=== PATIENT | male | born 1960 | race Caucasian/White ===

== ENCOUNTER 2021-10-12 08:04 | Inpatient (IN) ==
[2021-10-12] MEDS ORDERED: KETOROLAC 30 MG/1 ML VIAL IV STA (08:33)
[2021-10-12] MEDS ORDERED: ONDANSETRON 4 MG/2 ML VIAL IV STA (08:33)
[2021-10-12 08:39] LABS: Basophils % 0.2 % (0.0-0.8); Eosinophils # 0.1 10*3/uL (0.0-0.87); Eosinophils % 0.9 % (0.00-10.9); Hematocrit 39.3 VOL% (42.0-52.0); Hemoglobin 13.1 GM/DL (14.0-18.0); Immature Granulocytes % 0.3 %; Immature Granulocytes Absolute 0.05 #; Lymphocytes # 1.9 10*3/uL (1.4-4.0); Mean Corpuscular HGB Conc 33.3 GM/DL (32-36); Mean Corpuscular Volume 95.2 FL (87-102); Mean Platelet Volume 9.8 FL (9.6-12.0); Monocytes # 1.1 10*3/uL (0.11-0.8); Monocytes % 7.5 % (1.7-12.7); Neutrophils % 78.1 % (38.7-73.9); Platelet Count 254 T/CUMM (130-400); Red Blood Count 4.13 MC/CUMM (3.8-5.5); Red Cell Distribution Width 12.4 % (9.3-17.3); White Blood Count 14.4 T/CUMM (4-12)
[2021-10-12 09:02] LABS: Albumin 3.5 G/DL (3.4-5.0); Bilirubin,Total 0.5 MG/DL (0.20-1.00); Calcium 9.5 MG/DL (8.5-10.1); Osmolality,Calculated 275.7 MOS/KG (273-304); Potassium 3.8 MMOL/L (3.5-5.1); Total Protein 7.6 G/DL (6.4-8.2)
[2021-10-12 09:27] LABS: Amorphous Crystals,Urine Few /HPF (Few); Mucus,Urine Occasional /LPF (Occasional); RBC,Urine 11 /HPF (0-4)
[2021-10-12 09:28] LABS: Bilirubin,Urine Negative (Negative); Blood, Urine Small mg/dL (Negative); Glucose,Urine (UA) Negative (Negative); Ketones,Urine Negative (Negative); Nitrite,Urine Negative (Negative); Protein,Urine Negative (Negative); Urine Appearance Clear (Clear); Urine Color Dark yellow (Yellow)
[2021-10-12] MEDS ORDERED: HYDROmorphone 1 MG/1 ML SYRINGE IV STA (10:09)
[2021-10-12] MEDS ORDERED: PIPERACILLIN/TAZOBACTAM 3,375 MG in SODIUM CHLORIDE 0.9% 100 ML IV STA (10:20)
[2021-10-12] MEDS ORDERED: SODIUM CHLORIDE 0.9% 1,000 ML IV STA (10:22)
[2021-10-12] MEDS ORDERED: ONDANSETRON 4 MG/2 ML VIAL IV PRN (11:07)
[2021-10-12] MEDS ORDERED: oxyCODONE/ACETAMINOPHEN 5-325 MG TABLET PO PRN (11:07)
[2021-10-12] MEDS ORDERED: ACETAMINOPHEN 325 MG TABLET PO PRN (11:07)
[2021-10-12] MEDS: PIPERACILLIN/TAZOBACTAM 3,375 MG in SODIUM CHLORIDE 0.9% 100 ML IV SCH ×2 (15:09→23:15)
[2021-10-12] MEDS: HYDROmorphone 2 MG TABLET PO PRN (15:09)
[2021-10-12] MEDS: GABAPENTIN 600 MG TABLET PO SCH ×2 (16:50→20:14)
[2021-10-12] MEDS: HYDROmorphone 1 MG/1 ML SYRINGE IV PRN ×3 (16:50→23:10)
[2021-10-12] MEDS: DEXTROSE 5% LACTATED RINGERS 1,000 ML IV SCH ×2 (20:08→20:14)
[2021-10-12] MEDS: TOPIRAMATE 100 MG TABLET PO SCH (20:13)
[2021-10-12] MEDS: MELATONIN 3 MG TABLET PO SCH (20:13)
[2021-10-12] MEDS: NORTRIPTYLINE 25 MG CAPSULE PO SCH (20:14)
[2021-10-13] MEDS: HYDROmorphone 1 MG/1 ML SYRINGE IV PRN ×6 (02:38→21:26)
[2021-10-13] MEDS: DEXTROSE 5% LACTATED RINGERS 1,000 ML IV SCH ×3 (04:51→22:51)
[2021-10-13] MEDS: ENOXAPARIN 40 MG/0.4 ML SYRINGE SUBCUT SCH (05:38)
[2021-10-13] MEDS: PANTOPRAZOLE 40 MG TABLET PO SCH (05:40)
[2021-10-13 06:03] LABS: Basophils % 0.3 % (0.0-0.8); Eosinophils # 0.1 10*3/uL (0.0-0.87); Eosinophils % 1.2 % (0.00-10.9); Hematocrit 31.8 VOL% (42.0-52.0); Hemoglobin 10.8 GM/DL (14.0-18.0); Immature Granulocytes % 0.3 %; Immature Granulocytes Absolute 0.04 #; Lymphocytes # 1.7 10*3/uL (1.4-4.0); Lymphocytes % 13.8 % (21.2-54.2); Mean Corpuscular Volume 94.6 FL (87-102); Mean Platelet Volume 10.3 FL (9.6-12.0); Monocytes # 1.2 10*3/uL (0.11-0.8); Monocytes % 9.8 % (1.7-12.7); Neutrophils % 74.6 % (38.7-73.9); Platelet Count 221 T/CUMM (130-400); Red Blood Count 3.36 MC/CUMM (3.8-5.5); Red Cell Distribution Width 12.3 % (9.3-17.3)
[2021-10-13 06:32] LABS: Osmolality,Calculated 275.7 MOS/KG (273-304); Potassium 3.6 MMOL/L (3.5-5.1)
[2021-10-13] MEDS: PIPERACILLIN/TAZOBACTAM 3,375 MG in SODIUM CHLORIDE 0.9% 100 ML IV SCH ×3 (06:41→22:49)
[2021-10-13] MEDS: GABAPENTIN 600 MG TABLET PO SCH ×3 (08:40→21:25)
[2021-10-13] MEDS: TOPIRAMATE 100 MG TABLET PO SCH ×2 (08:40→21:25)
[2021-10-13] MEDS ORDERED: PANTOPRAZOLE 40 MG TABLET PO SCH (09:00)
[2021-10-13] MEDS: NICOTINE 14 MG/24 HR PATCH TRANSDERM SCH (12:32)
[2021-10-13] MEDS: HYDROmorphone 2 MG TABLET PO PRN (15:31)
[2021-10-13] MEDS: MELATONIN 3 MG TABLET PO SCH (21:25)
[2021-10-13] MEDS: NORTRIPTYLINE 25 MG CAPSULE PO SCH (21:25)
[2021-10-14] MEDS: HYDROmorphone 1 MG/1 ML SYRINGE IV PRN ×7 (00:57→23:41)
[2021-10-14] MEDS: DEXTROSE 5% LACTATED RINGERS 1,000 ML IV SCH ×3 (03:40→20:33)
[2021-10-14] MEDS: PANTOPRAZOLE 40 MG TABLET PO SCH (06:03)
[2021-10-14] MEDS: ENOXAPARIN 40 MG/0.4 ML SYRINGE SUBCUT SCH (06:04)
[2021-10-14] MEDS: PIPERACILLIN/TAZOBACTAM 3,375 MG in SODIUM CHLORIDE 0.9% 100 ML IV SCH ×3 (06:04→23:19)
[2021-10-14] MEDS: GABAPENTIN 600 MG TABLET PO SCH ×3 (09:17→20:37)
[2021-10-14] MEDS: NICOTINE 14 MG/24 HR PATCH TRANSDERM SCH (09:18)
[2021-10-14] MEDS: TOPIRAMATE 100 MG TABLET PO SCH ×2 (09:18→20:37)
[2021-10-14] MEDS: NORTRIPTYLINE 25 MG CAPSULE PO SCH (20:36)
[2021-10-14] MEDS: MELATONIN 3 MG TABLET PO SCH (20:37)
[2021-10-15 05:18] LABS: Basophils % 0.2 % (0.0-0.8); Eosinophils # 0.3 10*3/uL (0.0-0.87); Eosinophils % 5.4 % (0.00-10.9); Hematocrit 33.3 VOL% (42.0-52.0); Hemoglobin 11.1 GM/DL (14.0-18.0); Immature Granulocytes % 0.5 %; Immature Granulocytes Absolute 0.03 #; Lymphocytes # 2.1 10*3/uL (1.4-4.0); Lymphocytes % 36.6 % (21.2-54.2); Mean Corpuscular HGB Conc 33.3 GM/DL (32-36); Mean Platelet Volume 9.9 FL (9.6-12.0); Monocytes # 0.5 10*3/uL (0.11-0.8); Monocytes % 8.7 % (1.7-12.7); Neutrophils % 48.6 % (38.7-73.9); Platelet Count 251 T/CUMM (130-400); Red Blood Count 3.47 MC/CUMM (3.8-5.5); Red Cell Distribution Width 12.2 % (9.3-17.3); White Blood Count 5.8 T/CUMM (4-12)
[2021-10-15] MEDS: HYDROmorphone 1 MG/1 ML SYRINGE IV PRN ×6 (05:30→23:56)
[2021-10-15] MEDS: PANTOPRAZOLE 40 MG TABLET PO SCH (05:33)
[2021-10-15] MEDS: ENOXAPARIN 40 MG/0.4 ML SYRINGE SUBCUT SCH (05:33)
[2021-10-15] MEDS: DEXTROSE 5% LACTATED RINGERS 1,000 ML IV SCH ×2 (06:00→12:26)
[2021-10-15] MEDS: PIPERACILLIN/TAZOBACTAM 3,375 MG in SODIUM CHLORIDE 0.9% 100 ML IV SCH ×3 (07:23→23:00)
[2021-10-15] MEDS: GABAPENTIN 600 MG TABLET PO SCH ×3 (09:12→20:30)
[2021-10-15] MEDS: TOPIRAMATE 100 MG TABLET PO SCH ×2 (09:12→20:30)
[2021-10-15] MEDS: NICOTINE 14 MG/24 HR PATCH TRANSDERM SCH (09:13)
[2021-10-15] MEDS: NORTRIPTYLINE 25 MG CAPSULE PO SCH (20:29)
[2021-10-15] MEDS: MELATONIN 3 MG TABLET PO SCH (20:30)
[2021-10-16] MEDS: DEXTROSE 5% LACTATED RINGERS 1,000 ML IV SCH ×2 (05:20)
[2021-10-16] MEDS: HYDROmorphone 1 MG/1 ML SYRINGE IV PRN ×2 (05:24→11:42)
[2021-10-16] MEDS: ENOXAPARIN 40 MG/0.4 ML SYRINGE SUBCUT SCH (05:25)
[2021-10-16] MEDS: PANTOPRAZOLE 40 MG TABLET PO SCH (05:30)
[2021-10-16] MEDS: GABAPENTIN 600 MG TABLET PO SCH (09:19)
[2021-10-16] MEDS: HYDROmorphone 2 MG TABLET PO PRN (09:20)
[2021-10-16] MEDS: TOPIRAMATE 100 MG TABLET PO SCH (09:20)
[2021-10-16] MEDS: NICOTINE 14 MG/24 HR PATCH TRANSDERM SCH (09:20)
[2021-10-16] MEDS: PIPERACILLIN/TAZOBACTAM 3,375 MG in SODIUM CHLORIDE 0.9% 100 ML IV SCH (09:24)
[2021-10-16 12:46] VITALS: BP 126/90
== END 2021-10-16 13:11 | disposition home or self-care (01) | DRG 373 ==
LOC: N.ED 08:04 → N.EDINP 11:07 → N.5E 14:40
PROVIDERS: ADMIT Surgery; ATTEND Surgery

== ENCOUNTER 2022-03-28 10:55 | Inpatient (IN) ==
[2022-03-28] MEDS ORDERED: ONDANSETRON 4 MG/2 ML VIAL IV STA (11:25)
[2022-03-28] MEDS ORDERED: MORPHINE 2 MG/1 ML SYRINGE IV STA (11:25)
[2022-03-28 11:36] LABS: Basophils % 0.1 % (0.0-0.8); Hematocrit 40.6 VOL% (42.0-52.0); Hemoglobin 13.4 GM/DL (14.0-18.0); Immature Granulocytes % 0.6 %; Immature Granulocytes Absolute 0.13 #; Lymphocytes # 1.7 10*3/uL (1.4-4.0); Lymphocytes % 8.3 % (21.2-54.2); Mean Corpuscular Volume 96.7 FL (87-102); Mean Platelet Volume 10.2 FL (9.6-12.0); Monocytes # 0.9 10*3/uL (0.11-0.8); Monocytes % 4.6 % (1.7-12.7); Neutrophils % 86.4 % (38.7-73.9); Platelet Count 211 T/CUMM (130-400); White Blood Count 20.4 T/CUMM (4-12)
[2022-03-28] MEDS ORDERED: SODIUM CHLORIDE 0.9% 1,000 ML IV STA (11:42)
[2022-03-28] MEDS ORDERED: cefTRIAXone 1,000 MG in SODIUM CHLORIDE 0.9% 100 ML IV STA (11:45)
[2022-03-28] MEDS ORDERED: cefTRIAXone 1,000 MG VIAL ONE (11:46)
[2022-03-28 11:47] LABS: Albumin 3.8 G/DL (3.4-5.0); Bilirubin,Total 0.6 MG/DL (0.20-1.00); Osmolality,Calculated 281.4 MOS/KG (273-304); Potassium 3.8 MMOL/L (3.5-5.1); Total Protein 6.8 G/DL (6.4-8.2)
[2022-03-28 11:59] LABS: Anisocytosis 1+; Band Neutrophils 14 % (0-10); Lymphocytes 13 % (20-55); Platelet Estimate Normal; Total Cells Counted 100
[2022-03-28 12:00] LABS: Macrocytosis Slight
[2022-03-28] MEDS ORDERED: ONDANSETRON 4 MG/2 ML VIAL IV PRN (13:41)
[2022-03-28] MEDS ORDERED: ACETAMINOPHEN 325 MG TABLET PO PRN (13:41)
[2022-03-28] MEDS ORDERED: MORPHINE 2 MG/1 ML SYRINGE IV PRN (13:41)
[2022-03-28] MEDS: PIPERACILLIN/TAZOBACTAM 3,375 MG in SODIUM CHLORIDE 0.9% 100 ML IV SCH ×2 (13:45→20:48)
[2022-03-28] MEDS ORDERED: HYDROmorphone 1 MG/1 ML SYRINGE IV PRN (14:03)
[2022-03-28] MEDS: LACTATED RINGERS 1,000 ML IV SCH (14:28)
[2022-03-28 14:55] LABS: Thyroid Stimulating Hormone 0.6 uIU/ml (0.358-3.74)
[2022-03-28] MEDS: HYDROmorphone 1 MG/1 ML SYRINGE IV PRN ×2 (16:02→20:48)
[2022-03-28] MEDS ORDERED: ENOXAPARIN 40 MG/0.4 ML SYRINGE SUBCUT SCH (21:00)
[2022-03-29] MEDS: HYDROmorphone 1 MG/1 ML SYRINGE IV PRN ×6 (05:25→21:34)
[2022-03-29] MEDS: PIPERACILLIN/TAZOBACTAM 3,375 MG in SODIUM CHLORIDE 0.9% 100 ML IV SCH ×3 (05:28→21:29)
[2022-03-29 06:03] LABS: Basophils % 0.2 % (0.0-0.8); Eosinophils # 0.1 10*3/uL (0.0-0.87); Eosinophils % 0.4 % (0.00-10.9); Hematocrit 35.8 VOL% (42.0-52.0); Hemoglobin 11.6 GM/DL (14.0-18.0); Immature Granulocytes % 0.5 %; Immature Granulocytes Absolute 0.06 #; Lymphocytes # 1.4 10*3/uL (1.4-4.0); Lymphocytes % 10.7 % (21.2-54.2); Mean Corpuscular HGB Conc 32.4 GM/DL (32-36); Mean Corpuscular Volume 98.6 FL (87-102); Mean Platelet Volume 10.9 FL (9.6-12.0); Monocytes # 0.7 10*3/uL (0.11-0.8); Monocytes % 5.1 % (1.7-12.7); Neutrophils % 83.1 % (38.7-73.9); Platelet Count 162 T/CUMM (130-400); Red Blood Count 3.63 MC/CUMM (3.8-5.5); Red Cell Distribution Width 12.8 % (9.3-17.3); White Blood Count 13.2 T/CUMM (4-12)
[2022-03-29 06:26] LABS: Calcium 8.8 MG/DL (8.5-10.1); Osmolality,Calculated 281.4 MOS/KG (273-304); Potassium 3.6 MMOL/L (3.5-5.1)
[2022-03-29] MEDS ORDERED: PANTOPRAZOLE 40 MG TABLET PO SCH (09:00)
[2022-03-29] MEDS ORDERED: PANTOPRAZOLE 40 MG VIAL IV SCH (09:00)
[2022-03-29] MEDS: LACTATED RINGERS 1,000 ML IV SCH ×2 (09:30→13:38)
[2022-03-29 19:41] LABS: Bilirubin,Urine Negative (Negative); Blood, Urine Moderate mg/dL (Negative); Glucose,Urine (UA) Negative (Negative); Ketones,Urine Trace mg/dL (Negative); Mucus,Urine Occasional /LPF (Occasional); Nitrite,Urine Negative (Negative); Protein,Urine 30 mg/dL (Negative); RBC,Urine 11 /HPF (0-4); Urine Appearance Clear (Clear); Urine Color Yellow (Yellow)
[2022-03-29] MEDS: PANTOPRAZOLE 40 MG VIAL IV SCH (21:29)
[2022-03-30] MEDS: HYDROmorphone 1 MG/1 ML SYRINGE IV PRN ×6 (01:34→21:15)
[2022-03-30] MEDS: LACTATED RINGERS 1,000 ML IV SCH ×3 (02:47→21:13)
[2022-03-30] MEDS: PIPERACILLIN/TAZOBACTAM 3,375 MG in SODIUM CHLORIDE 0.9% 100 ML IV SCH ×3 (04:57→21:14)
[2022-03-30 05:17] LABS: Basophils % 0.1 % (0.0-0.8); Eosinophils # 0.1 10*3/uL (0.0-0.87); Eosinophils % 1.1 % (0.00-10.9); Hematocrit 33.8 VOL% (42.0-52.0); Hemoglobin 11.4 GM/DL (14.0-18.0); Immature Granulocytes % 0.4 %; Immature Granulocytes Absolute 0.04 #; Lymphocytes # 1.3 10*3/uL (1.4-4.0); Lymphocytes % 13.1 % (21.2-54.2); Mean Corpuscular HGB Conc 33.7 GM/DL (32-36); Mean Corpuscular Volume 95.8 FL (87-102); Mean Platelet Volume 10.4 FL (9.6-12.0); Monocytes # 0.6 10*3/uL (0.11-0.8); Monocytes % 6.2 % (1.7-12.7); Neutrophils % 79.1 % (38.7-73.9); Platelet Count 167 T/CUMM (130-400); Red Blood Count 3.53 MC/CUMM (3.8-5.5); Red Cell Distribution Width 12.4 % (9.3-17.3); White Blood Count 10.1 T/CUMM (4-12)
[2022-03-30 05:36] LABS: Albumin 2.9 G/DL (3.4-5.0); Bilirubin,Total 0.6 MG/DL (0.20-1.00); Osmolality,Calculated 274.8 MOS/KG (273-304); Phosphorous 2.1 MG/DL (2.5-4.9); Potassium 3.7 MMOL/L (3.5-5.1); Total Protein 6.6 G/DL (6.4-8.2)
[2022-03-30] MEDS: PANTOPRAZOLE 40 MG VIAL IV SCH ×2 (09:12→21:13)
[2022-03-30] MEDS ORDERED: LIDOCAINE 2% 5 ML VIAL ONE (12:39)
[2022-03-30] MEDS ORDERED: propofoL 200 MG/20 ML VIAL IV ONE (12:39)
[2022-03-30] MEDS ORDERED: NORTRIPTYLINE 25 MG CAPSULE PO SCH (21:00)
[2022-03-30] MEDS ORDERED: SIMVASTATIN 10 MG TABLET PO SCH (21:00)
[2022-03-30] MEDS: TOPIRAMATE 100 MG TABLET PO SCH (21:13)
[2022-03-31] MEDS: HYDROmorphone 1 MG/1 ML SYRINGE IV PRN (03:00)
[2022-03-31 05:30] LABS: Basophils % 0.1 % (0.0-0.8); Eosinophils # 0.2 10*3/uL (0.0-0.87); Eosinophils % 2.2 % (0.00-10.9); Hematocrit 33.5 VOL% (42.0-52.0); Hemoglobin 11.4 GM/DL (14.0-18.0); Immature Granulocytes % 0.4 %; Immature Granulocytes Absolute 0.04 #; Lymphocytes # 1.1 10*3/uL (1.4-4.0); Lymphocytes % 11.9 % (21.2-54.2); Mean Corpuscular Volume 94.4 FL (87-102); Mean Platelet Volume 10.1 FL (9.6-12.0); Monocytes # 0.8 10*3/uL (0.11-0.8); Monocytes % 8.8 % (1.7-12.7); Neutrophils % 76.6 % (38.7-73.9); Platelet Count 210 T/CUMM (130-400); Red Blood Count 3.55 MC/CUMM (3.8-5.5); Red Cell Distribution Width 12.1 % (9.3-17.3); White Blood Count 8.9 T/CUMM (4-12)
[2022-03-31] MEDS: PIPERACILLIN/TAZOBACTAM 3,375 MG in SODIUM CHLORIDE 0.9% 100 ML IV SCH (05:45)
[2022-03-31 05:54] LABS: % Iron Saturation 13.5 % (18-50); Calcium 9.2 MG/DL (8.5-10.1); Osmolality,Calculated 272.8 MOS/KG (273-304); Potassium 3.2 MMOL/L (3.5-5.1)
[2022-03-31] MEDS ORDERED: POTASSIUM CHLORIDE 20 MEQ TABLET PO ONE (07:17)
[2022-03-31 08:02] VITALS: BP 140/96
[2022-03-31] MEDS ORDERED: HYDROmorphone 1 MG/1 ML SYRINGE IV PRN (08:24)
[2022-03-31] MEDS: PANTOPRAZOLE 40 MG VIAL IV SCH (08:42)
[2022-03-31] MEDS: TOPIRAMATE 100 MG TABLET PO SCH (08:45)
[2022-03-31] MEDS ORDERED: MULTIVITAMIN (CENTRUM) TABLET PO SCH (09:00)
[2022-03-31] MEDS ORDERED: TAMSULOSIN 0.4 MG CAPSULE PO SCH (09:00)
[2022-03-31] MEDS ORDERED: FERROUS SULFATE 325 MG TABLET PO SCH (09:00)
[2022-03-31] MEDS: LACTATED RINGERS 1,000 ML IV SCH (13:02)
== END 2022-03-31 13:28 | disposition home or self-care (01) | DRG 394 ==
LOC: N.ED 10:55 → N.TELES 12:59 → SUATTDRO 12:59 → N.TELES 14:54
PROVIDERS: ADMIT Internal Medicine; ATTEND Internal Medicine